=== PATIENT | male | born 1980 | race American Indian/Alaskan Native ===

== ENCOUNTER 2016-10-06 21:34 | Emergency (ER) | payer OTHER ==
[2016-10-06 21:40] VITALS: BP 128/76; PULSE 78; TEMP 97.6; BMI 26.1
--- NOTE | 2016-10-06 22:28 | PDOC ---
History of Present Illness - General Chief Complaint: Chest Pain Stated Complaint: SHOULDER PAIN, CHEST TIGHTNESS Time Seen by Provider: 10/06/16 21:56 History Source: Patient Exam Limitations: No Limitations - History of Present Illness Presenting Symptoms: Chest Pain Timing/Duration: reports: intermittent, other (x1week) Severity/Quality: reports: mild Location: reports: substernal Chest Pain Radiation: reports: arms (b/l) Past History - Travel Traveled outside of the country in the last 30 days: No Close contact w/someone who was outside of country & ill: No - Past Medical History Allergies/Adverse Reactions: Allergies Allergy/AdvReac Type Severity Reaction Status Date / Time No Known Allergies Allergy Verified 10/06/16 21:40 Home Medications: Ambulatory Orders Rosuvastatin Calcium [Crestor] 10 mg PO DAILY 10/06/16 Hypercholesterolemia: Yes - Psycho/Social/Smoking Cessation Hx Anxiety: No Suicidal Ideation: No Smoking History: Never smoked Have you smoked in the past 12 months: No Information on smoking cessation initiated: No Hx Alcohol Use: No Drug/Substance Use Hx: No Substance Use Type: None Cardiac Specific PMH - Complaint Specific PMHX Abdominal Aortic Aneurysm: No Review of Systems - Review of Systems Able to Perform ROS?: Yes Comments:: 10/06/16 22:27 CONSTITUTIONAL: Absent: fever, chills, diaphoresis, generalized weakness, malaise, loss of appetite HEENT: Absent: rhinorrhea, nasal congestion, throat pain, throat swelling, difficulty swallowing, mouth swelling, ear pain, eye pain, visual Changes CARDIOVASCULAR: chest pain substernal x1 week Absent: loss of consciousness, palpitations, irregular heart rate, peripheral edema RESPIRATORY: Absent: cough, shortness of breath, dyspnea with exertion, orthopnea, wheezing, stridor, hemoptysis GASTROINTESTINAL: Absent: abdominal pain, abdominal distension, nausea, vomiting, diarrhea, constipation, melena, hematochezia GENITOURINARY: Absent: dysuria, frequency, urgency, hesitancy, hematuria, flank pain, genital pain MUSCULOSKELETAL: Absent: myalgia, arthralgia, joint swelling SKIN: Absent: rash, itching, pallor HEMATOLOGIC/IMMUNOLOGIC: Absent: easy bleeding, easy bruising, lymphadenopathy, frequent infections ENDOCRINE: Absent: unexplained weight gain, unexplained weight loss, heat intolerance, cold intolerance NEUROLOGIC: Absent: headache, focal weakness or paresthesias, dizziness, unsteady gait, seizure, mental status changes, bladder or bowel incontinence PSYCHIATRIC: Absent: anxiety, depression, suicidal or homicidal ideation, hallucinations. Is the patient limited Kiswahili proficient: No *Physical Exam - Vital Signs Last Vital Signs Temp Pulse Resp BP Pulse Ox 97.6 F 78 17 128/76 98 10/06/16 21:36 10/06/16 21:36 10/06/16 21:36 10/06/16 21:36 10/06/16 21:55 Heart Score/ECG Review - History History: Slightly suspicious - Electrocardiogram EKG: Normal - Age Age: 45-65 - Risk Factors Based on the list above the patient has:: No risk factors known - Troponin Troponin: </= normal limit - Score Heart Score - Total: 1 - ECG Intrepretation Rhythm: Regular Rhythm - [place]: Normal ED Treatment Course - LABORATORY CBC & Chemistry Diagram: 10/06/16 22:20 10/06/16 22:20 - ADDITIONAL ORDERS Additional order review: Laboratory Results 10/06/16 22:20 Sodium 140 Potassium 3.6 Chloride 104 Carbon Dioxide 29 Anion Gap 7 L BUN 17 Creatinine 1.0 Creat Clearance w eGFR > 60 Random Glucose 108 H Calcium 9.3 Total Bilirubin 0.6 AST 17 ALT 27 Alkaline Phosphatase 74 Creatine Kinase 234 CK-MB (CK-2) 2.764 Troponin I < 0.02 Total Protein 7.9 Albumin 4.2 10/06/16 22:20 RBC 5.25 MCV 82.5 MCHC 34.0 RDW 13.5 MPV 9.1 Neutrophils % 56.2 Lymphocytes % 31.1 Monocytes % 8.9 Eosinophils % 3.2 Basophils % 0.6 - RADIOLOGY Radiology Studies Ordered: Category Date Time Status CHEST PA & LAT [RAD] Stat Radiology 10/06/16 23:24 Taken Chest X-Ray Result: No Infiltrates Progress Note - Progress Note Progress Note: 36-year-old male presents to the emergency department complaining of substernal 5/10 dull intermittent discomfort which radiates to bilateral shoulders times one week without nausea/vomiting, fever/chills, headache, dizziness, lightheadedness, neck pains, back pains, abdominal pains. There are no exacerbating factors. The pain is alleviated minimally at rest. Patient denies recent flight, prolonged sitting, lower leg/calf pain, extremity numbness or tingling sensation. Patient denies smoking history. *DC/Admit/Observation/Transfer Diagnosis at time of Disposition: Atypical chest pain - Discharge Dispostion Disposition: HOME Condition at time of disposition: Stable Admit: No - Referrals Referrals: Senia Bone MD [Primary Care Provider] - Ryan Garcia MD [Staff Physician] - - Patient Instructions Printed Discharge Instructions: DI for Atypical Chest Pain Additional Instructions: Return to the ER for severe/persistent or worsening symptoms Follow up with the radio station audio engineer this week for an echocardiogram
[2016-10-06 22:40] LABS: BASOPHIL 0.6 % (0-2.0); EOSINOPHIL 3.2 % (0-4.5); MEAN CELL VOLUME 82.5 fl (80-96); MEAN PLT VOLUME 9.1 fl (7.5-11.1); NEUTROPHILS 56.2 % (42.8-82.8); PLATELET COUNT 193 K/MM3 (134-434); RDW 13.5 % (11.9-15.9); WHITE BLOOD COUNT 8.8 K/mm3 (4.0-10.0)
--- NOTE | 2016-10-06 22:52 | PDOC ---
[id number] 98 10/06/16 21:36 10/06/16 21:36 10/06/16 21:36 10/06/16 21:36 10/06/16 21:55 ED Treatment Course - LABORATORY CBC & Chemistry Diagram: 10/06/16 22:20 10/06/16 22:20 - ADDITIONAL ORDERS Additional order review: 10/06/16 22:20 RBC 5.25 MCV 82.5 MCHC 34.0 RDW 13.5 MPV 9.1 Neutrophils % 56.2 Lymphocytes % 31.1 Monocytes % 8.9 Eosinophils % 3.2 Basophils % 0.6 Medical Decision Making - Medical Decision Making 10/06/16 22:52 Pt seen by the Advanced Practice Provider under my direct supervision Ancillary studies reviewed I agree with plan as outlined by the Advanced Practice Provider PAPITO Corado *DC/Admit/Observation/Transfer Diagnosis at time of Disposition: Atypical chest pain - Discharge Dispostion Disposition: HOME Condition at time of disposition: Stable - Referrals Referrals: Ryan Garcia MD [Staff Physician] - Senia Bone MD [Primary Care Provider] - - Patient Instructions Printed Discharge Instructions: DI for Atypical Chest Pain Additional Instructions: Return to the ER for severe/persistent or worsening symptoms Follow up with the wire rope fabrication supervisor this week for an echocardiogram
[2016-10-06 23:10] LABS: ALBUMIN 4.2 g/dl (3.4-5.0); ANION GAP 7 (8-16); BILIRUBIN,TOTAL 0.6 mg/dL (0.2-1.0); CALCIUM 9.3 mg/dL (8.5-10.1); CO2 29 mmol/L (21-32); GLUCOSE,RANDOM 108 mg/dL (74-106); SGOT/AST 17 U/L (15-37); SGPT/ALT 27 U/L (12-78); TOT PROT 7.9 g/dl (6.4-8.2)
[2016-10-06 23:12] LABS: ALK PHOS 74 U/L (45-117); TROPONIN I < 0.02 ng/ml (0.00-0.05)
--- NOTE | 2016-10-08 11:23 | EKG ---
Test Reason : Blood Pressure : / mmHG Vent. Rate : 061 BPM Atrial Rate : 061 BPM P-R Int : 144 ms QRS Dur : 090 ms QT Int : 430 ms P-R-T Axes : 043 025 051 degrees QTc Int : 432 ms NORMAL SINUS RHYTHM NORMAL ECG NO PREVIOUS ECGS AVAILABLE Confirmed by RANDOLPH HAM MD ([id number]) on 10/08/2016 11:23:30 AM Referred By: Confirmed By:RANDOLPH HAM MD
== END 2016-10-07 00:14 | disposition home or self-care (01) ==
LOC: JER 21:34
DX: R07.89 Other chest pain (principal)
CPT/HCPCS: 36415; 71020-TC; 80053; 82550; 82553; 84484; 85025; 93005; 93010; 99285-25

== ENCOUNTER 2021-05-22 18:57 | Emergency (ER) | payer OTHER ==
[2021-05-22 19:02] VITALS: BP 127/88; PULSE 89; TEMP 97.9; BMI 34.4
[2021-05-22] MEDS ORDERED: ASPIRIN 81 MG CHEWABLE TABLETS PO ONE (19:36)
[2021-05-22] MEDS ORDERED: ASPIRIN 81 MG CHEWABLE TABLETS ONE (19:43)
[2021-05-22 20:22] LABS: BASO % 0.6 % (0-2.0); HEMATOCRIT 41.5 % (35.4-49); HEMOGLOBIN 14.1 GM/dL (11.7-16.9); LYMPH % 19.7 % (8-40); MEAN CELL VOLUME 82.4 fl (80-96); MEAN PLT VOLUME 8.6 fl (7.5-11.1); MONO % 9.6 % (3.8-10.2); NEUT % 67.1 % (42.8-82.8); PLATELET COUNT 199 10^3/uL (134-434); RBC 5.03 M/mm3 (4.00-5.60); RDW 13.7 % (11.9-15.9); WHITE BLOOD COUNT 11.8 K/mm3 (4.0-10.0)
[2021-05-22 20:23] LABS: INR 1.04 (0.83-1.09); PROTHROMBIN TIME (PATIENT) 11.7 SEC (9.7-13.0)
[2021-05-22 20:29] LABS: CHLORIDE 107 mmol/L (98-107); SODIUM 141 mmol/L (136-145)
[2021-05-22 20:31] LABS: ALBUMIN 3.8 g/dl (3.4-5.0); ANION GAP 10 MMOL/L (8-16); BLOOD UREA NITROGEN 15.8 mg/dL (7-18); CALCIUM 9.3 mg/dL (8.5-10.1); CO2 24 mmol/L (21-32); GLUCOSE,RANDOM 90 mg/dL (74-106)
[2021-05-22 20:34] LABS: CREATININE 0.9 mg/dL (0.55-1.3); SGOT/AST 20 U/L (15-37); SGPT/ALT 49 U/L (13-61)
[2021-05-22 20:36] LABS: BILIRUBIN,TOTAL 0.5 mg/dL (0.2-1)
[2021-05-22 20:37] LABS: ALK PHOS 83 U/L (45-117)
== END 2021-05-23 00:48 | disposition home or self-care (01) ==
LOC: JER 18:57
DX: R07.89 Other chest pain (principal)
CPT/HCPCS: 36415; 71046-TC-FY; 80053; 84484; 85025; 85379; 85610; 93005; 93010; 99285-25; C9803; U0003; U0005